=== PATIENT | female | born 1990 | race Caucasian/White ===

== ENCOUNTER 2019-10-15 18:04 | Inpatient (IN) ==
[2019-10-15] MEDS ORDERED: REGLAN PO PRN (18:17)
[2019-10-15] MEDS ORDERED: ZOFRAN IV PRN (18:17)
[2019-10-15] MEDS ORDERED: TYLENOL PO PRN (18:17)
[2019-10-15] MEDS ORDERED: PEPCID PO PRN ×2 (18:17)
[2019-10-15] MEDS ORDERED: LR 500 ML IV ONE (18:17)
[2019-10-15] MEDS ORDERED: STADOL IV PRN ×2 (18:17→19:41)
[2019-10-15] MEDS ORDERED: KEFZOL 2 GM/D5W 2 GM/50 ML IVPB IV PRN (18:17)
[2019-10-15] MEDS ORDERED: PEPCID IV PRN (18:17)
[2019-10-15 18:24] LABS: URINE SOURCE VOIDED
[2019-10-15] MEDS ORDERED: PITOCIN 30 UNITS/NS 30 UNIT/500 ML IV.SOLN IV SCH (18:30)
[2019-10-15] MEDS ORDERED: SODIUM CHLORIDE 0.9% INJ SCH (18:30)
[2019-10-15 18:32] LABS: BILIRUBIN URINE NEGATIVE (NEGATIVE); COLOR YELLOW; GLUCOSE URINE NEGATIVE (NEGATIVE); KETONE URINE NEGATIVE (NEGATIVE); TURBIDITY URINE CLEAR (CLEAR)
[2019-10-15 18:33] LABS: BLOOD URINE NEGATIVE (NEGATIVE); LEUKOCYTES URINE NEGATIVE (NEGATIVE); NITRITE URINE NEGATIVE (NEGATIVE); PROTEIN URINE NEGATIVE (NEGATIVE); UROBILINOGEN URINE NORMAL (NORMAL)
[2019-10-15 18:49] LABS: BASO# 0.03 X1000 (0.0-0.2); BASO% 0.3 % (0.0-0.8); EOS# 0.21 X1000 (0.0-0.7); EOS% 1.8 % (0.0-10.0); HEMATOCRIT 38.6 % (37.0-47.0); HEMOGLOBIN 12.8 g/dL (12.0-16.0); IMM GRAN# 0.05 X1000 (0.0-0.04); IMM GRAN% 0.4 % (0.0-0.5); LYMPH# 2.46 X1000 (1.2-3.4); LYMPH% 20.9 % (20.5-51.1); MCH 28.4 PG (27-31); MCHC 33.2 g/dL (33-37); MCV 85.6 FL (81-99); MONO# 1.13 X1000 (0.11-0.59); MONO% 9.6 % (1.7-9.3); MPV 10.6 FL (7.4-10.4); NEUT# 7.88 X1000 (1.4-6.5); PLT 232 X1000 (130-400); RBC 4.51 XMIL (4.2-5.4); RDW 13.9 % (11.5-14.5); WBC 11.76 X1000 (4.8-10.8)
[2019-10-15 19:09] LABS: UR AMPHETAMINES QUAL NONE DETECTED (NONE DETECT); UR BARBITUATES QUAL NONE DETECTED (NONE DETECT); UR BENZODIAZEPIN QUAL NONE DETECTED (NONE DETECT); UR CANNABINOIDS QUAL NONE DETECTED (NONE DETECT); UR COCAINE QUAL NONE DETECTED (NONE DETECT); UR METHADONE QUAL NONE DETECTED (NONE DETECT); UR OPIATES QUAL NONE DETECTED (NONE DETECT); UR OXYCODONE QUAL NONE DETECTED (NONE DETECT); UR PCP QUAL NONE DETECTED (NONE DETECT)
[2019-10-15] MEDS ORDERED: SODIUM CHLORIDE 0.9% INJ PRN (19:41)
[2019-10-15] MEDS ORDERED: PHENERGAN IV PRN (19:41)
[2019-10-15] MEDS: LR 1,000 ML IV SCH (19:45)
[2019-10-15] MEDS: CLINDAMYCIN 900 MG/D5W 900 MG/50 ML IVPB IV SCH (20:56)
--- NOTE | 2019-10-15 21:03 | HISTORY AND PHYSICAL ---
HISTORY OF PRESENT ILLNESS: The patient is a 29-year-old white female, G3, P0, A2 who is at 40- 2/7 weeks based on a first-trimester ultrasound, admitted for induction of labor. She is admitted on 10/15/2019 for cervical ripening with Cytotec to be followed by Pitocin induction on 10/16/2019. care to date has been unremarkable except for a group B strep positive culture at 36 weeks gestation. PAST MEDICAL HISTORY: Unremarkable. PAST SURGICAL HISTORY: She had a laparoscopy for removal of ectopic which was right tube and ovary. PAST OBSTETRIC HISTORY: G3, P0, A2, spontaneous AB x1 and right ectopic . GYNECOLOGIC HISTORY: Menarche at age 9. REVIEW OF SYSTEMS: All systems reviewed and noncontributory. FAMILY HISTORY: Significant for rheumatoid arthritis and breast cancer. SOCIAL HISTORY: Tobacco use none. Alcohol use none. MEDICATIONS: vitamins. ALLERGIES: Penicillin. PHYSICAL EXAMINATION: VITAL SIGNS: Height 5 feet 2 inches, weight 171 pounds. Temperature 96.5, blood pressure 122/81, pulse of 97, respirations 18. heart rate in the 120s with positive accelerations. HEENT: Pupils equal, round, reactive to light and accommodation. Extraocular movements intact. Oropharynx clear. NECK: Supple. No thyromegaly. LUNGS: Clear to auscultation. HEART: Regular rate and rhythm. ABDOMEN: Gravid, nontender. PELVIC EXAM: Cervix was 0.5 cm dilated, 60% effaced, and -2 station. EXTREMITIES: No clubbing, cyanosis, or edema noted. NEUROLOGIC: Cranial nerves II-XII grossly intact. Motor 5/5. DTRs 2+ bilaterally. ASSESSMENT/PLAN: A 29-year-old white female, G3, P0, A2 at 40-2/7 weeks admitted for cervical ripening and induction of labor. Patient with a group B strep positive culture and will be given IV antibiotics for GBS prophylaxis. Anticipate vaginal delivery. cc: Bowen Degroot III, MD
[2019-10-15] MEDS: CYTOTEC PO SCH (21:17)
[2019-10-16] MEDS: CYTOTEC PO SCH ×2 (01:11→05:20)
[2019-10-16] MEDS ORDERED: BRETHINE SUBQ PRN (03:17)
[2019-10-16] MEDS: CLINDAMYCIN 900 MG/D5W 900 MG/50 ML IVPB IV SCH ×2 (04:59→12:40)
[2019-10-16] MEDS ORDERED: XYLOCAINE-MPF 1% INJ PRN ×2 (07:22→18:19)
[2019-10-16] MEDS ORDERED: MINERAL OIL PO PRN (07:23)
[2019-10-16] MEDS: LR 1,000 ML IV SCH ×3 (07:25→09:27)
[2019-10-16] MEDS ORDERED: FENTANYL-BUPIV-NS 500 MCG-0.125% 250 ML EPIDURAL PRN (07:30)
[2019-10-16] MEDS ORDERED: FENTANYL IV ONE (07:45)
[2019-10-16] MEDS ORDERED: NAROPIN 0.2% INJ ONE (07:53)
[2019-10-16] MEDS ORDERED: BOOSTRIX VACCINE IM ONE (18:19)
[2019-10-16] MEDS ORDERED: BENADRYL PO PRN (18:19)
[2019-10-16] MEDS ORDERED: AMBIEN PO PRN (18:19)
[2019-10-16] MEDS ORDERED: MINERAL OIL TOP PRN (18:19)
[2019-10-16] MEDS ORDERED: PITOCIN IM PRN (18:19)
[2019-10-16] MEDS ORDERED: HYDROXYZINE IM PRN (18:19)
[2019-10-16] MEDS ORDERED: CYTOTEC PO PRN (18:19)
[2019-10-16] MEDS ORDERED: BENADRYL IV PRN (18:19)
[2019-10-16] MEDS ORDERED: ATARAX PO PRN (18:19)
[2019-10-16] MEDS ORDERED: M-M-R II VACCINE SUBQ ONE (18:19)
[2019-10-16] MEDS ORDERED: NORCO-10 PO PRN (18:19)
[2019-10-16] MEDS ORDERED: PITOCIN 30 UNITS/NS 30 UNIT/500 ML IV.SOLN IV SCH (18:30)
[2019-10-16] MEDS ORDERED: PITOCIN 20 UNITS/NS 20 UNITS/1,000 ML IV.SOLN IV SCH (18:30)
--- NOTE | 2019-10-16 18:32 | OPERATIVE NOTE ---
PROCEDURE DATE: 10/16/2019 DESCRIPTION OF DELIVERY: The patient progressed to complete and pushing. She had spontaneous vaginal delivery of a male infant, 7 pounds, 1 ounce, with Apgars of 8 and 10 at 17:48 on 10/16/2019 over second-degree midline episiotomy. Cord blood sample was obtained at this time. Placenta was delivered intact with three-vessel cord. Second-degree midline episiotomy repaired with 2-0 and 3-0 chromic and 2-0 Vicryl. Estimated blood loss 200 mL. ANESTHESIA: Epidural. COUNTS: All counts were correct x2. cc: Bowen Degroot III, MD
[2019-10-16] MEDS: PERI MEDS (DERMOPLAST/NUPERCAINAL/TUCKS) MISC PRN ×2 (18:35→23:06)
[2019-10-16] MEDS: PERICOLACE PO SCH (20:15)
[2019-10-16] MEDS: MOTRIN PO PRN (20:31)
[2019-10-17] MEDS: MOTRIN PO PRN ×3 (03:59→20:23)
[2019-10-17 05:17] LABS: BASO# 0.05 X1000 (0.0-0.2); BASO% 0.4 % (0.0-0.8); EOS# 0.15 X1000 (0.0-0.7); EOS% 1.2 % (0.0-10.0); HEMATOCRIT 32.4 % (37.0-47.0); HEMOGLOBIN 10.5 g/dL (12.0-16.0); IMM GRAN# 0.03 X1000 (0.0-0.04); IMM GRAN% 0.2 % (0.0-0.5); LYMPH# 2.06 X1000 (1.2-3.4); LYMPH% 16.7 % (20.5-51.1); MCH 28.4 PG (27-31); MCHC 32.4 g/dL (33-37); MCV 87.6 FL (81-99); MONO# 0.96 X1000 (0.11-0.59); MONO% 7.8 % (1.7-9.3); MPV 10.8 FL (7.4-10.4); NEUT# 9.12 X1000 (1.4-6.5); NEUT% 73.7 % (42.2-75.2); PLT 178 X1000 (130-400); WBC 12.37 X1000 (4.8-10.8)
[2019-10-17] MEDS ORDERED: ZOFRAN IV PRN (12:15)
[2019-10-17] MEDS: NORCO-5 PO PRN ×2 (12:38→20:23)
[2019-10-17] MEDS: FERROUS SULFATE PO SCH (18:26)
[2019-10-17] MEDS: PERICOLACE PO SCH (20:23)
[2019-10-17] MEDS: ZOFRAN PO PRN (20:26)
[2019-10-18] MEDS: NORCO-5 PO PRN ×3 (04:38→13:56)
[2019-10-18] MEDS: MOTRIN PO PRN ×2 (04:38→13:56)
[2019-10-18] MEDS: ZOFRAN PO PRN ×2 (04:40→13:57)
[2019-10-18 07:26] VITALS: BP 96/58
[2019-10-18] MEDS: PERI MEDS (DERMOPLAST/NUPERCAINAL/TUCKS) MISC PRN (07:28)
--- NOTE | 2019-10-18 08:28 | DISCHARGE SUMMARY ---
ADMISSION DATE: 10/15/2019 DISCHARGE DATE: 10/18/2019 HOSPITAL COURSE: Diane is a 29-year-old, 3, para 0 now 1, who is admitted at 40 and 2/7th weeks gestation for elective induction of labor. She undergoes a Cytotec induction followed by Oxytocin and group B strep prophylaxis. She undergoes a normal spontaneous vaginal delivery on the day of admission. Please see separate delivery note. course was uncomplicated. day #1, she is afebrile with stable vital signs. She is ambulating, voiding, tolerating a regular diet. Hemoglobin 10.5 down from 12.8. On day #2, she is ambulating, voiding, tolerating a regular diet. Vital signs stable, afebrile and discharged home in stable condition. She is asked to follow up in the office in 6 weeks. Call the office for pain, fever greater than 100.4, abnormal uterine bleeding. Maintain pelvic rest and regular diet. Continue vitamins and iron. A prescription for Motrin and Zofran provided. cc: Bowen Degroot III, MD
[2019-10-18] MEDS: FERROUS SULFATE PO SCH (09:03)
[2019-10-18] MEDS ORDERED: ZOFRAN PO ONE (09:08)
== END 2019-10-18 14:25 | disposition home or self-care (01) | DRG 807 ==
LOC: LD 18:04
PROVIDERS: ADMIT Obstetrics & Gynecology; ATTEND Obstetrics & Gynecology